=== PATIENT | male | born 1940 | race Caucasian/White ===

== ENCOUNTER 2019-12-05 10:43 | Emergency (ER) | payer MEDICARE, OTHER, SELFPAY ==
[2019-12-05 10:45] VITALS: BP 193/91; PULSE 86; RESP 18; TEMP 36.6; O2SAT 98; BMI 21.7
--- NOTE | 2019-12-05 11:12 | ED_ITS ---
HPI - Abdominal Pain <JARVIS Kennedy - Last Filed: 12/05/19 20:29> General Chief Complaint: Abdominal Pain Stated Complaint: Insides are not doing well, lower stomach pain Time Seen by Provider: 12/05/19 10:59 Source: patient Mode of arrival: Ambulatory Limitations: no limitations History of Present Illness HPI narrative: 79yo male since to the emergency department for suprapubic pain for the past 24 hours. Patient states about 2 months ago he developed suprapubic pain that lasted about 10 minutes, described as a dull aching pressure. Last night he states that he had increase in urinary frequency and urgency. He states ?I had to he got up to the bathroom approximately 12 times last night. He states he felt like he had to urinate and defecate as well. He denies dysuria, fevers, chills, nausea, vomiting, diarrhea, chest pain, shortness of breath, or other abdominal pain. Patient denies any history of prostate issues. Related Data Home Medications Medication Instructions Recorded Confirmed Supplements 1 dose PO DAILY 12/05/19 12/05/19 Previous Rx's Medication Instructions Recorded sulfamethoxazole-trimethoprim 1 tab PO BID 14 Days #28 tab 12/05/19 [Bactrim DS] Allergies Allergy/AdvReac Type Severity Reaction Status Date / Time No Known Drug Allergies Allergy Verified 12/05/19 10:52 Review of Systems <JARVIS Kennedy - Last Filed: 12/05/19 20:29> Review of Systems Narrative: REVIEW OF SYSTEMS: GENERAL: Denies fever or chills. HENT: No head trauma. CARDIOVASCULAR: No chest pain. RESPIRATORY: No shortness of breath or cough. GASTROINTESTINAL: No nausea, vomiting, or abdominal pain, see HPI. GENITOURINARY: Complains of increased urinary urgency and frequency MUSCULOSKELETAL: No trauma. INTEGUMENTARY: No rash, lesions, or pruritus. NEURO: No memory loss or confusion. Patient History <JARVIS Kennedy - Last Filed: 12/05/19 20:29> Medical History No significant medical problems (Acute) Social History Smoking Status: Never smoker Smoking Status: Never smoker alcohol intake frequency: 0-2 drinks per day Substance Use Type: does not use Exam <JARVIS Kennedy - Last Filed: 12/05/19 20:29> Initial Vital Signs Initial Vital Signs: Vital Signs Temperature 97.9 F 12/05/19 10:45 Pulse Rate 86 12/05/19 10:45 Respiratory Rate 18 12/05/19 10:45 Blood Pressure 193/91 H 12/05/19 10:45 Pulse Oximetry 98 12/05/19 10:45 PHYSICAL EXAMINATION: GENERAL: Well groomed, alert, and cooperative. Answers questions promptly and appropriately. Vital signs noted. HENT: Normocephalic, atraumatic. Ear canals patent. Oral mucosa is pink and moist. EYES: Conjunctiva pink, sclera white, no periorbital swelling. CHEST: Normal to inspection and without deformities. CARDIOVASCULAR: S1 and S2 sounds normal. Regular rate and rhythm, no murmurs, clicks, or bruits. No pedal edema. RESPIRATORY: Normal respiratory rate, trachea midline, airway patent. No stridor, nasal flaring or accessory muscle use. Lungs are clear in all [place] without wheeze, rhonchi, or crackles. GASTROINTESTINAL: Bowel sounds normoactive. Slight tenderness noted to supra pubic area, no rebound tenderness, no masses. RECTAL: On external hemorrhoid noted, [id number] tenderness a prostate on exam. No nodules, prostate without significant bogginess. MUSCULOSKELETAL: Normal gait and coordination. Equal tone and mass bilaterally. EXTREMITIES: CMS intact. Moves all extremities. SKIN: Warm, dry, soft, appropriate color for ethnicity. No lesions, rashes, or wounds. NEURO: Alert and Oriented X 3. Good coordination. No ataxia, or sensory deficits, or cognitive issues. PSYCH: Appropriate affect and mood. <Milad Haywood DO - Last Filed: 12/06/19 07:01> Initial Vital Signs Initial Vital Signs: Vital Signs Temperature 97.9 F 12/05/19 10:45 Pulse Rate 86 12/05/19 10:45 Respiratory Rate 18 12/05/19 10:45 Blood Pressure 193/91 H 12/05/19 10:45 Pulse Oximetry 98 12/05/19 10:45 Course <JARVIS Kennedy - Last Filed: 12/05/19 20:29> Course Course Narrative: Bladder scan was performed by nursing < 50ml of water in bladder. Orders Ordered: Discontinued Medications Sodium Chloride (Normal Saline 0.9%) 1,000 mls @ 150 mls/hr IV CONT [facility] Last Admin: 12/05/19 11:58 Dose: Not Given Documented by: PATRICK Meclizine HCl (Antivert) 25 mg PO NOW ONE Stop: 12/05/19 11:29 Last Admin: 12/05/19 11:58 Dose: Not Given Documented by: PATRICK Consultations Consultation #1: Patient staffed with Dr. Haywood Vital Signs Vital signs: Vital Signs - 8 hr 12/05/19 12:30 Temperature 97.9 F Pulse Rate 71 Respiratory Rate 15 Blood Pressure 148/75 H Pulse Oximetry 98 <Milad Haywood DO - Last Filed: 12/06/19 07:01> Orders Ordered: Discontinued Medications Sodium Chloride (Normal Saline 0.9%) 1,000 mls @ 150 mls/hr IV CONT [facility] Last Admin: 12/05/19 11:58 Dose: Not Given Documented by: PATRICK Meclizine HCl (Antivert) 25 mg PO NOW ONE Stop: 12/05/19 11:29 Last Admin: 12/05/19 11:58 Dose: Not Given Documented by: PATRICK Vital Signs Vital signs: Vital Signs - 8 hr 12/05/19 12:30 Temperature 97.9 F Pulse Rate 71 Respiratory Rate 15 Blood Pressure 148/75 H Pulse Oximetry 98 MDM - Abdominal Pain <JARVIS Kennedy - Last Filed: 12/05/19 20:29> Medical Records Attestation: I reviewed the patient's medical records. Lab Data Attestation: I reviewed the patient's lab results. Result diagrams: 12/05/19 11:50 Labs: Lab Results 12/05/19 12/05/19 Range/Units 11:45 11:50 WBC 7.9 (4.5-11.0) X10^3/uL RBC 5.35 (4.5-5.9) X10^6/uL Hgb 16.3 (13.5-17.5) g/dL Hct 46.7 (41-53) % MCV 87.2 (80-100) fL MCH 30.4 (26-34) PG MCHC 34.9 (30-36) % RDW 13.3 (11.6-14.8) % Plt Count 198 (150-400) X10^3/uL Neut % (Auto) 74.0 (50-75) % Lymph % (Auto) 13.0 L (25-40) % [place] % (Auto) 12.6 (3-14) % Eos % (Auto) 0.2 L (2-4) % Baso % (Auto) 0.2 (0-2) % Neut # (Auto) 5900 (0081-2520) /uL Lymph # (Auto) 1000 L (7580-5108) /uL [place] # (Auto) 1000 H (0-900) /uL Eos # (Auto) 0 (0-450) /uL Baso # (Auto) 0 (0-100) /uL Urine RBC None seen (0-5/HPF) Urine WBC 0-1/hpf (0-5/HPF) Ur Squamous Epith Cells 0-1 /hpf (0-5/HPF) Amorphous Sediment 2+ Urine Bacteria Occasional (0-1) (None) Urine Mucus 3+ H (Negative) Ur Culture Indicated? Specimen cultured Point of care testing: Urine Dip Bedside Urine Glucose Negative Bedside Urine Bilirubin + 1 Bedside Urine Ketone +/- 5 Urine Specific [place] 1.015 Bedside Urine Occult Blood - Negative Bedside Urine pH 6.5 Bedside Urine Protein + 30 Bedside Urine Urobilinogen 1+ 2mg Bedside Urine Nitrite - Negative Bedside Urine Leukocytes +/- 15 Esterase MDM Narrative Medical decision making narrative: This is a 79-year-old male presenting to the emergency department for what appears to be urinary symptoms. Increased concern for prostatitis due to increased frequency, urine urgency, and history of some of the symptoms happening previously. Mucus, occasional bacteria, and white blood cells. Specimen was cultured. Patient did have tenderness to prostate on rectal exam. Differential includes acute versus chronic prostatitis, less likely BPH as patient complains of irritated symptoms and symptoms are consi stent with rectal pain or the urge of feeling like he has to defecate. <Milad Haywood, - Last Filed: 12/06/19 07:01> Lab Data Labs: Lab Results 12/05/19 12/05/19 Range/Units 11:45 11:50 WBC 7.9 (4.5-11.0) X10^3/uL RBC 5.35 (4.5-5.9) X10^6/uL Hgb 16.3 (13.5-17.5) g/dL Hct 46.7 (41-53) % MCV 87.2 (80-100) fL MCH 30.4 (26-34) PG MCHC 34.9 (30-36) % RDW 13.3 (11.6-14.8) % Plt Count 198 (150-400) X10^3/uL Neut % (Auto) 74.0 (50-75) % Lymph % (Auto) 13.0 L (25-40) % [place] % (Auto) 12.6 (3-14) % Eos % (Auto) 0.2 L (2-4) % Baso % (Auto) 0.2 (0-2) % Neut # (Auto) 5900 (6936-5725) /uL Lymph # (Auto) 1000 L (4883-3821) /uL [place] # (Auto) 1000 H (0-900) /uL Eos # (Auto) 0 (0-450) /uL Baso # (Auto) 0 (0-100) /uL Urine RBC None seen (0-5/HPF) Urine WBC 0-1/hpf (0-5/HPF) Ur Squamous Epith Cells 0-1 /hpf (0-5/HPF) Amorphous Sediment 2+ Urine Bacteria Occasional (0-1) (None) Urine Mucus 3+ H (Negative) Ur Culture Indicated? Specimen cultured Point of care testing: Urine Dip Bedside Urine Glucose Negative Bedside Urine Bilirubin + 1 Bedside Urine Ketone +/- 5 Urine Specific [place] 1.015 Bedside Urine Occult Blood - Negative Bedside Urine pH 6.5 Bedside Urine Protein + 30 Bedside Urine Urobilinogen 1+ 2mg Bedside Urine Nitrite - Negative Bedside Urine Leukocytes +/- 15 Esterase Discharge Plan Departure Patient Disposition: Home Clinical Impression: Acute prostatitis Discharge Date/Time: 12/05/19 12:30 Instructions: DI for Acute Prostatitis Activity Restrictions/Additional Instructions: Thank you for entrusting me with your care today. As discussed, your laboratory work was non-remarkable. From examination, suspect you have prostatitis which is inflammation in your prostate gland, this can cause the symptoms you have been describing. I prescribed you an antibiotic, please take this as directed. I have also referred you to a urologist. Please call them today or tomorrow to schedule an appointment as soon as possible. Return emergency department for new or worsening symptoms such as severe pain, inability to urinate, high fevers, chest pain, vomiting, or any other concerns. Prescriptions: New sulfamethoxazole-trimethoprim [Bactrim DS] 800-160 mg tablet 1 tab PO BID 14 Days Qty: 28 RF: 0 No Action Supplements 1 dose PO DAILY RF: 0 Referrals: Armand Sandhu DO [Non-Staff] - (Prostatitis ) Saima Billingsley PA-C [Primary Care Provider] - <Milad Haywood DO - Last Filed: 12/06/19 07:01> Sign Out Provider Sign Out Attestation: Dr Haywood Co-Sign Statement: I was available for consultation during this patient's emergency department visit. This chart is signed by myself for administrative purposes only. I did not have direct contact with this patient during this visit. They were seen independently by the APC.
[2019-12-05 11:50] LABS: RBC Urine None Seen (0-5/HPF)
[2019-12-05 11:57] LABS: Amorphous Sediment Urine 2+; Bacteria Urine Occasional (0-1); Culture Indicated Urine Specimen Cultured; Mucus Urine 3+ (Negative); Squamous Epithelial Cell Urine 0-1 /HPF (0-5/HPF); WBC Urine 0-1/HPF (0-5/HPF)
[2019-12-05 12:03] LABS: Add Manual Diff / Slide Review NO; Basophils Absolute Auto 0 /uL (0-100); Basophils Percent Auto 0.2 % (0-2); Eosinophils Absolute Auto 0 /uL (0-450); Eosinophils Percent Auto 0.2 % (2-4); Hematocrit 46.7 % (41-53); Hemoglobin 16.3 g/dL (13.5-17.5); Lymphocytes Absolute Auto 1000 /uL (1100-4500); Mean Corpuscular HGB Conc 34.9 % (30-36); Mean Corpuscular Hemoglobin 30.4 PG (26-34); Mean Corpuscular Volume 87.2 fL (80-100); Monocytes Absolute Auto 1000 /uL (0-900); Monocytes Percent Auto 12.6 % (3-14); Neutrophils Absolute Auto 5900 /uL (1500-7000); Platelet Count 198 X10^3/uL (150-400); Red Blood Cell Count 5.35 X10^6/uL (4.5-5.9); Red Cell Distribution Width 13.3 % (11.6-14.8); White Blood Cell Count 7.9 X10^3/uL (4.5-11.0)
[2019-12-05 12:30] VITALS: BP 148/75; PULSE 71; RESP 15; TEMP 36.6; O2SAT 98
== END 2019-12-05 12:30 | disposition home or self-care (01) ==
PROVIDERS: Emergency Provider Nurse Practitioner; PCP Physician Assistant
DX: N41.0 Acute prostatitis (principal)
CPT/HCPCS: 36415; 51798; 81003; 81015; 85025; 87086; 99282; 99283